=== PATIENT | male | born 1985 | race African-American/Black ===

== ENCOUNTER 2021-07-24 02:42 | Emergency (ER) | payer BC, OTHER ==
[2021-07-24] MEDS ORDERED: Ibuprofen 600 MG Tab PO ONE (02:48)
--- NOTE | 2021-07-24 02:53 | EDM.PDOC ---
ED HPI GENERAL MEDICAL PROBLEM - General Chief Complaint: General Stated Complaint: facial pain Time Seen by Provider: 07/24/21 02:42 Source of Information: Reports: Patient History Limitations: Reports: No Limitations - History of Present Illness INITIAL COMMENTS - FREE TEXT/NARRATIVE: Patient [place] while he was at work when he got struck in the left cheek with an air hammer. He did not get knocked out. He has some pain to his left teeth on the left upper region of his mouth that is somewhat worse. He does have some chronic dental caries throughout his oral cavity. He did not get knocked out. He has no visual acuity changes. No headache. No weakness dizziness lightheadedness or syncope. He has not tried anything for pain prior to arrival. - Related Data Allergies Allergy/AdvReac Type Severity Reaction Status Date / Time No Known Allergies Allergy Verified 07/24/21 02:47 Home Meds: Home Meds . [No Known Home Meds] 07/24/21 [History] ED ROS GENERAL - Review of Systems Review Of Systems: Comprehensive ROS is negative, except as noted in HPI. ED EXAM, GENERAL - Physical Exam Exam: See Below Exam Limited By: No Limitations General Appearance: Alert, WD/WN, No Apparent Distress Eye Exam: Bilateral Eye: EOMI, PERRL Ears: Normal External Exam, Normal Canal, Normal TMs Nose: Normal Inspection, Normal Mucosa, No Blood Throat/Mouth: Normal Lips, Normal Gums, Normal Oropharynx, Normal Voice, No Airway Compromise. No: Normal Teeth (The 1st molar in all 4 regions has a chronic teri into the dentin nothing acute for infection. No overt fracture or loose teeth. Rest of the oral pharynx is unremarkable. ) Head: Normocephalic, Facial Tenderness (Mild tenderness to the left zygomatic arch. No bruising swelling ecchymosis or bony deformity. No subcut. emphyzema. Rest of the face atraumatic. ). No: Facial Swelling Neck: Normal Inspection, Supple. No: Tender Lateral, Tender Midline Respiratory/Chest: No Respiratory Distress, Lungs Clear, Normal Breath Sounds, No Accessory Muscle Use, Chest Non-Tender Cardiovascular: Normal Peripheral Pulses, Regular Rate, Rhythm GI/Abdominal: Normal Bowel Sounds, Soft (Male) Exam: Deferred Rectal (Males) Exam: Deferred Back Exam: Normal Inspection, Full Range of Motion Extremities: Normal Inspection, Normal Range of Motion, Normal Capillary Refill Neurological: Alert, Oriented, CN II-XII Intact, Normal Cognition, Normal Gait, Normal Reflexes, No Motor/Sensory Deficits Psychiatric: Normal Affect, Normal Mood Skin Exam: Warm, Dry, Intact, Normal Color, No Rash Course - Vital Signs Last Recorded V/S: Last Vital Signs Temp 97.6 F 07/24/21 03:00 Pulse 67 07/24/21 03:00 Resp 10 L 07/24/21 03:00 BP 117/73 07/24/21 03:00 Pulse Ox 98 07/24/21 03:00 - Orders/Labs/Meds Meds: Medications Discontinued Medications Generic Name Dose Route Start Last Admin Trade Name Freq PRN Reason Stop Dose Admin Ibuprofen 600 mg 07/24/21 02:48 07/24/21 03:08 Ibuprofen 600 Mg Tab PO 07/24/21 02:49 600 mg ONETIME ONE Administration - Re-Assessments/Exams Free Text/Narrative Re-Assessment/Exam: The patient would really like me to fix his chronic dental caries in the ED. Although i explained to the patient that I'm not a dentist and there is nothing acutely fractured or infectious at this time. I do not think that any x-rays of the face is going to change our plan of care as there is not even a bruise swelling or any other signs of trauma to the face other than some mild tenderness. Symptomatic management at this time. Is comfortable with this plan his questions are answered. Departure - Departure Time of Disposition: 02:49 Disposition: Home, Self-Care 01 Clinical Impression: Chronic dental caries extending to pulp Contusion, cheek Qualifiers: Encounter type: initial encounter Qualified Code(s): S00.83XA - Contusion of other part of head, initial encounter - Discharge Information Instructions: Dental Caries, Adult, Facial or Scalp Contusion, [id number], Dental Caries, Adult, [id number] Forms: ED Department Discharge Additional Instructions: Tylenol and or Ibuprofen as needed for pain. Ice to the left cheek as needed for discomfort. SEE A DENTIST FELICITA for your chronic dental caries. Return to the ED if new or worsening symptoms.
== END 2021-07-24 03:20 | disposition home or self-care (01) ==
LOC: LL.ED 02:42
DX: S00.83XA Contusion of other part of head, initial encounter (principal); K02.9 Dental caries, unspecified; W22.09XA Striking against other stationary object, initial encounter; Y99.0 Civilian activity done for income or pay
CPT/HCPCS: 99283; A9270-GY